=== PATIENT | male | born 1970 | race Caucasian/White ===

== ENCOUNTER 2020-03-31 00:20 | Emergency (ER) | payer MEDICAID ==
[~2020-03-31] VITALS: Ht 172.7 cm; Wt 75.7 kg
[2020-03-31 00:28] VITALS: Ht 172.7 cm; Wt 75.7 kg
[2020-03-31 02:57] LABS: CALCIUM 8.8 mg/dL (8.5-10.1); CARBON DIOXIDE 27.4 mmol/L (21-32); CHLORIDE SERUM 106 mmol/L (98-107); CREATININE SERUM 0.8 mg/dL (0.7-1.3); GFR1 > 60 mL/min; GLUCOSE SERUM 120 mg/dL (74-106); POTASSIUM SERUM 3.7 mmol/L (3.5-5.1); SODIUM SERUM 141 mmol/L (136-145)
[2020-03-31 03:03] LABS: ALBUMIN 3.7 g/dL (3.4-5.0); ALKALINE PHOSPHATASE 99 U/L (46-116); ALT/SGPT 46 U/L (16-63); AST/SGOT 21 U/L (15-37); BILIRUBIN TOTAL 0.32 mg/dL (0.20-1.00); TOTAL PROTEIN, SERUM 7.2 g/dL (6.4-8.2)
[2020-03-31 03:05] LABS: PLATELET COUNT 158 x10^3mcL (130-400); RED CELL DISTRIBUTION WIDTH 12.9 % (11.5-14.5)
[2020-03-31 03:06] LABS: BASOPHIL % 0 % (0-2)
[2020-03-31 03:46] VITALS: BP 117/73
== END 2020-03-31 03:46 | disposition home or self-care (01) ==
LOC: ED 00:20
PROVIDERS: Emergency Medicine
DX: R53.1 Weakness (principal); R42 Dizziness and giddiness; Z20.828 Contact with and (suspected) exposure to other viral communicable diseases
CPT/HCPCS: 36415; Q0092

== ENCOUNTER 2020-06-20 21:05 | Emergency (ER) | payer SELFPAY ==
[~2020-06-20] VITALS: Ht 177.8 cm; Wt 74.8 kg
[2020-06-20 21:14] VITALS: Ht 177.8 cm; Wt 74.8 kg
[2020-06-20 21:59] VITALS: BP 127/74
== END 2020-06-20 21:59 | disposition home or self-care (01) ==
LOC: ED 21:05
DX: S50.11XA Contusion of right forearm, initial encounter (principal); W23.0XXA Caught, crushed, jammed, or pinched between moving objects, initial encounter; Y93.89 Activity, other specified; Y92.89 Other specified places as the place of occurrence of the external cause; Y99.8 Other external cause status
CPT/HCPCS: Q0092

== ENCOUNTER 2020-11-23 09:43 | Emergency (ER) | payer MEDICAID ==
[~2020-11-23] VITALS: Ht 172.7 cm; Wt 76.7 kg
[2020-11-23 09:55] VITALS: BP 142/78; Ht 172.7 cm; Wt 76.7 kg
== END 2020-11-23 13:23 | disposition home or self-care (01) ==
LOC: ED 09:43
DX: L03.115 Cellulitis of right lower limb (principal)